=== PATIENT | female | born 1985 | race Asian ===

== ENCOUNTER → 2016-07-28 | Outpatient (CLI) | payer OTHER ==
[2016-07-28 09:17] LABS: CHLORIDE SERUM 102 mmol/L (98-107); CHOLESTEROL 200 mg/dL (<200); CREATININE SERUM 0.8 mg/dL (0.6-1.0); GFR1 > 60 mL/min; GLUCOSE SERUM 83 mg/dL (74-106); POTASSIUM SERUM 3.9 mmol/L (3.5-5.1); SODIUM SERUM 139 mmol/L (136-145); TRIGLYCERIDES 48 mg/dL (<150)
[2016-07-28 09:18] LABS: CHOLESTEROL/HDL RATIO 2.6; HDL CHOLESTEROL 76 mg/dL (40-60)
== END | disposition home or self-care (01) ==
LOC: LB 08:20
PROVIDERS: Dermatology
DX: L70.0 Acne vulgaris (principal)

== ENCOUNTER → 2016-09-16 | Outpatient (CLI) | payer OTHER ==
[2016-09-16 14:35] LABS: ALT/SGPT 18 U/L (14-59); AST/SGOT 20 U/L (15-37); CALCIUM 8.9 mg/dL (8.5-10.1); CARBON DIOXIDE 27.1 mmol/L (21-32); CHLORIDE SERUM 104 mmol/L (98-107); CREATININE SERUM 0.7 mg/dL (0.6-1.0); GFR1 > 60 mL/min; GLUCOSE SERUM 96 mg/dL (74-106); LACTIC DEHYDROGENASE (LDH) 171 U/L (100-190); SODIUM SERUM 139 mmol/L (136-145)
== END | disposition home or self-care (01) ==
LOC: LB 13:32
DX: L70.0 Acne vulgaris (principal)

== ENCOUNTER → 2016-11-03 | Outpatient (CLI) | payer OTHER ==
[2016-11-03 13:19] LABS: CHOLESTEROL/HDL RATIO 2.2
== END | disposition home or self-care (01) ==
LOC: LB 12:27
PROVIDERS: Dermatology
DX: L70.0 Acne vulgaris (principal)

== ENCOUNTER → 2016-12-28 | Outpatient (CLI) | payer OTHER ==
[2016-12-28 14:17] LABS: CHOLESTEROL/HDL RATIO 2.4
== END | disposition home or self-care (01) ==
LOC: LB 13:30
PROVIDERS: Dermatology
DX: L70.0 Acne vulgaris (principal)

== ENCOUNTER → 2018-03-01 | Outpatient (CLI) | payer OTHER ==
[2018-03-01 09:34] LABS: microscopic required? NO
[2018-03-01 10:00] LABS: PLATELET COUNT 253 x10^3mcL (130-400)
[2018-03-01 10:01] LABS: UA SPECIFIC GRAVITY >=1.030 (1.005-1.035); urine erythrocyte NEGATIVE (NEGATIVE)
[2018-03-01 10:06] LABS: ALBUMIN 4.1 g/dL (3.4-5.0); ALKALINE PHOSPHATASE 36 U/L (46-116); ALT/SGPT 7 U/L (14-59); AST/SGOT 14 U/L (15-37); BILIRUBIN TOTAL 0.6 mg/dL (0.20-1.00); CARBON DIOXIDE 24.4 mmol/L (21-32); CHLORIDE SERUM 104 mmol/L (98-107); CHOLESTEROL 178 mg/dL (<200); CHOLESTEROL/HDL RATIO 2.6; CREATININE SERUM 0.7 mg/dL (0.6-1.0); FREE T4 0.94 ng/dL (0.76-1.46); GFR1 > 60 mL/min; GLUCOSE SERUM 80 mg/dL (74-106); HDL CHOLESTEROL 68 mg/dL (40-60); POTASSIUM SERUM 3.5 mmol/L (3.5-5.1); SODIUM SERUM 139 mmol/L (136-145); TOTAL PROTEIN, SERUM 8.3 g/dL (6.4-8.2); TRIGLYCERIDES 66 mg/dL (<150)
[2018-03-01 10:23] LABS: TOTAL IRON BINDING CAPACITY 445 ug/dL (250-450)
[2018-03-01 10:29] LABS: IRON 290 ug/dL (50-170)
[2018-03-01 12:54] LABS: BAND NEUTROPHIL 1 % (0-10); MONOCYTE 5 % (0-7); SEGMENTED NEUTROPHILS 60 % (37-75); acanthocyte (spur cell) 1+; ovalocyte/elliptocyte 1+; rbc morphology (normal/abnorm) ABNORMAL (NORMAL)
== END | disposition home or self-care (01) ==
LOC: LB 09:09
PROVIDERS: Family Medicine Geriatric Medicine
DX: R53.83 Other fatigue (principal); Z13.29 Encounter for screening for other suspected endocrine disorder; Z13.228 Encounter for screening for other metabolic disorders; Z13.21 Encounter for screening for nutritional disorder; Z13.1 Encounter for screening for diabetes mellitus; Z86.2 Personal history of diseases of the blood and blood-forming organs and certain disorders involving the immune mechanism; Z13.220 Encounter for screening for lipoid disorders
CPT/HCPCS: 82652; 84439

== ENCOUNTER → 2018-03-29 | Outpatient (CLI) | payer OTHER | END | disposition home or self-care (01) | LOC: LB 12:12 | DX: Z01.419 Encounter for gynecological examination (general) (routine) without abnormal findings (principal) | CPT/HCPCS: 86694 ==

== ENCOUNTER → 2018-04-04 | Outpatient (CLI) | payer OTHER | END | disposition home or self-care (01) | LOC: US 08:52 | PROC: BH42ZZZ Ultrasonography of Bilateral Breasts (ICD-10-PCS; principal; 2018-04-04) | DX: Z01.419 Encounter for gynecological examination (general) (routine) without abnormal findings (principal) | CPT/HCPCS: 76641 ==

== ENCOUNTER → 2018-04-23 | Outpatient (CLI) | payer OTHER | END | disposition home or self-care (01) | LOC: MA 08:51 | PROC: BH01ZZZ Plain Radiography of Left Breast (ICD-10-PCS; principal; 2018-04-23) | DX: Z12.31 Encounter for screening mammogram for malignant neoplasm of breast (principal) | CPT/HCPCS: 77065 ==